=== PATIENT | male | born 1975 | race Caucasian/White ===

== ENCOUNTER 2017-08-15 12:07 | Emergency (ER) | payer SELFPAY ==
[~2017-08-15] VITALS: Ht 182.9 cm; Wt 77.3 kg
[2017-08-15 12:12] VITALS: BP 118/68; TEMP 98
[2017-08-15] MEDS ORDERED: CLEOCIN HCL300 MG PO (13:37)
[2017-08-15] MEDS ORDERED: NORCO 325 MG-51 TAB PO (13:37)
[2017-08-15 13:56] VITALS: PULSE 82
== END 2017-08-15 13:57 | disposition home or self-care (01) ==
LOC: COL.ER 12:07
DX: L08.9 Local infection of the skin and subcutaneous tissue, unspecified (principal); S61.210A Laceration without foreign body of right index finger without damage to nail, initial encounter; W31.89XA Contact with other specified machinery, initial encounter